=== PATIENT | female | born 1985 | race Asian ===

== ENCOUNTER 2017-01-22 09:21 | Emergency (ER) | payer OTHER ==
[~2017-01-22] VITALS: Ht 160 cm; Wt 54.4 kg
[2017-01-22 10:03] VITALS: BP 135/76
[2017-01-22] MEDS ORDERED: IBUPROFEN 600 MG TABLET. PO ONE (10:45)
--- NOTE | 2017-01-22 11:07 | RAD ---
Indication chronic ankle pain. AP oblique and lateral views of the left ankle were obtained. No bony abnormality is seen
--- NOTE | 2017-01-22 11:14 | PHYS DOC ---
Past Medical History Past Medical History: No Pertinent History Past Surgical History: No Surgical History Alcohol Use: None Drug Use: None Adult General Chief Complaint Chief Complaint: LOWEREXTREMITY INJURY HPI HPI Patient is a 31 year old female who presents with left ankle pain. Patient reports she sprained her left ankle 7 years ago in [facility]. States she has had chronic pain since that time, significantly worse over the past week due to lots of walking at work. Denies any new falls or injury. Denies any other pain. Has not tried taking medication at home. Has not been seen by a physician any time in recent years for this ongoing pain. History obtained with assistance of [facility] language line shank turner. Review of Systems Review of Systems Constitutional: Denies fever or chills HENT: Denies nasal congestion or sore throat Respiratory: Denies cough or shortness of breath Cardiovascular: Denies chest pain GI: Denies abdominal pain, nausea, vomiting Musculoskeletal: Reports left ankle pain Integument: Denies rash Neurologic: Denies headache Current Medications Current Medications Current Medications Medications (Trade) Dose Ordered Sig/Olga Lidia Start Time Stop Time Status Last Admin Dose Admin Ibuprofen (Motrin) 600 mg 1X ONCE 01/22/17 10:45 01/22/17 10:46 DC 01/22/17 10:48 600 MG Allergies Allergies Allergies Coded Allergies Type Severity Reaction Last Updated Verified No Known Drug Allergies 01/22/17 No Physical Exam Physical Exam Constitutional: Well developed, well nourished, no acute distress, non-toxic appearance. HENT: Normocephalic, atraumatic, bilateral external ears normal, oropharynx moist, nose normal. Eyes: conjunctiva normal, no discharge. Cardiovascular: no edema. Lungs & Thorax: no respiratory distress. Abdomen: nondistended. Skin: Warm, dry, Extremities: Left ankle no swelling or deformity, lateral malleolus tenderness is present without deformity, no medial malleolar tenderness, no tenderness with palpation over proximal fifth metatarsal. No proximal tib/fib tenderness, no knee tenderness, DP and PT 2+, sensation intact over the foot. Neurologic: Alert and oriented X 3 Current Patient Data Vital Signs Vital Signs Date Time Temp Pulse Resp B/P Pulse Ox O2 Delivery O2 Flow Rate FiO2 01/22/17 10:03 97.7 86 18 100 Room Air 97.7 EKG EKG [] Radiology/Procedures Radiology/Procedures PROCEDURE: ANKLE LEFT 3V Indication chronic ankle pain. AP oblique and lateral views of the left ankle were obtained. No bony abnormality is seen DICTATED and SIGNED BY: JOSE MELGAR MD DATE: 01/22/171102[] Course & Med Decision Making Course & Med Decision Making Pertinent Labs and Imaging studies reviewed. (See chart for details) Patient presents with acute on chronic ankle pain. X-ray unremarkable as above. Recommend rest, provided riky wrap, tylenol/ibuprofen for pain, follow up as needed with Dr. Claire in primary care clinic, may need PT. Gave work note for light duty. Patient discharged home in stable condition. [] Dragon Disclaimer Dragon Disclaimer This electronic medical record was generated, in whole or in part, using a voice recognition dictation system. Departure Departure Impression: Primary Impression: Ankle pain Disposition: 01 HOME, SELF-CARE Condition: STABLE Referrals: NO PCP (PCP) YONATAN CLAIRE MD Patient Instructions: Ankle Pain Additional Instructions: You were seen in the emergency department today for ankle pain. X-ray was normal. Please rest, ice, take ibuprofen as needed. Follow-up with Dr. Claire in the primary care clinic or choose another doctor if you prefer. EMMANUEL THOMAS MD Jan 22, 2017 11:14
== END 2017-01-22 11:45 | disposition home or self-care (01) ==
LOC: ER 09:21
DX: M25.572 Pain in left ankle and joints of left foot (principal); G89.29 Other chronic pain
CPT/HCPCS: 73610; 99284

== ENCOUNTER 2017-01-31 10:02 | Emergency (ER) | payer OTHER ==
[~2017-01-31] VITALS: Ht 162.6 cm; Wt 54.4 kg
[2017-01-31 10:23] VITALS: BP 106/67
[2017-01-31] MEDS ORDERED: TRAM-29 PO (10:45)
[2017-01-31] MEDS ORDERED: PENI500T PO (10:45)
--- NOTE | 2017-01-31 10:45 | PHYS DOC ---
Past Medical History Past Medical History: No Pertinent History Past Surgical History: No Surgical History Additional Information: Nonsmoker Alcohol Use: None Drug Use: None Adult General Chief Complaint Chief Complaint: TOOTH ACHE OR PAIN HPI HPI Patient is a 31 year old female who presents with right maxillary dental pain for 3 days. She denies any fever. She does not have a PCP. The patient speaks Greek. A family member translates. Review of Systems Review of Systems Constitutional: Denies fever or chills. [] Eyes: Denies change in visual acuity, redness, or eye pain. [] HENT: Denies ear pain, nasal congestion or sore throat. Reports dental pain. Integument: Denies rash or skin lesions. [] Allergies Allergies Allergies Coded Allergies Type Severity Reaction Last Updated Verified No Known Drug Allergies 01/22/17 No Physical Exam Physical Exam Constitutional: Well developed, well nourished, no acute distress, non-toxic appearance. [] HENT: Normocephalic, atraumatic, bilateral external ears normal, oropharynx moist, no oral exudates, nose normal. Bilateral TMs without erythema or bulging. There is no posterior pharyngeal erythema or tonsillar edema. Tooth #1 is broken. There are widespread dental caries. There is no gingival edema or dental abscess. Eyes: PERRLA, EOMI, conjunctiva normal, no discharge. [] Neck: Normal range of motion, no tenderness, supple, no stridor. [] Skin: Warm, dry, no erythema, no rash. [] Neurologic: Alert and oriented X 3, normal motor function, normal sensory function, no focal deficits noted. [] Psychologic: Affect normal, judgement normal, mood normal. [] Current Patient Data Vital Signs Vital Signs Date Time Temp Pulse Resp B/P Pulse Ox O2 Delivery O2 Flow Rate FiO2 01/31/17 10:23 98.1 102 20 98 Room Air 98.1 EKG EKG [] Radiology/Procedures Radiology/Procedures [] Course & Med Decision Making Course & Med Decision Making Pertinent Labs and Imaging studies reviewed. (See chart for details) [] Dragon Disclaimer Dragon Disclaimer This electronic medical record was generated, in whole or in part, using a voice recognition dictation system. Departure Departure Impression: Primary Impression: Dentalgia Disposition: 01 HOME, SELF-CARE Condition: STABLE Referrals: NO PCP (PCP) Patient Instructions: Dental Pain, [id number] Additional Instructions: Please complete all the prescribed antibiotics, even if your tooth is feeling better. Please take the prescribed pain medication as directed. Do not drive or operate heavy machinery while taking pain medication. Please follow-up with the dentist of your choice as soon as possible. Return to the emergency department if you have any new or concerning symptoms. Scripts Penicillin V Potassium 500 Mg Tablet1 Tab PO TID #30 TAB Prov:MIKI CONTRERAS 01/31/17 Tramadol Hcl (Ultram)50 Mg [id number] Mg PO Q6H PRN PAIN #20 TAB Prov:MIKI CONTRERAS 01/31/17 MIKI CONTRERAS Jan 31, 2017 10:45
== END 2017-01-31 11:05 | disposition home or self-care (01) ==
LOC: ER 10:02
DX: K08.89 Other specified disorders of teeth and supporting structures (principal)
CPT/HCPCS: 99283

== ENCOUNTER 2017-04-20 07:54 | Emergency (ER) | payer OTHER ==
[~2017-04-20] VITALS: Ht 154.9 cm; Wt 54.4 kg
[~2017-04-20 07:54] MED LIST: PENI500T PO; TRAM-48 PO
[2017-04-20 08:06] VITALS: BP 114/69
[2017-04-20] MEDS ORDERED: IBUP-1007 PO (08:15)
[2017-04-20] MEDS ORDERED: IBUPROFEN 600 MG TABLET. PO ONE (08:15)
--- NOTE | 2017-04-20 08:15 | PHYS DOC ---
Past Medical History Past Medical History: No Pertinent History Past Surgical History: No Surgical History Alcohol Use: None Drug Use: None Adult General Chief Complaint Chief Complaint: HAND PROBLEM HPI HPI Patient is a 31 year old female that presents to the emergency department with complaints of right hand discomfort for 15 days. Patient states that at night when she sleeps she has the sensation of her hand going to sleep namely the 1 through 3 fingers. Patient states that she has had no known trauma. She does have a job where she performs repetitive wrist motions. Patient is a non- Thai speaking patient, was offered a interpretation line, but declined. Her friend will be interpreting for her per her request. Review of Systems Review of Systems Constitutional: Denies fever or chills [] Musculoskeletal: rigth wrist pain Integument: Denies rash or skin lesions [] Allergies Allergies Allergies Coded Allergies Type Severity Reaction Last Updated Verified No Known Drug Allergies 01/22/17 No Physical Exam Physical Exam Constitutional: Well developed, well nourished, no acute distress, non-toxic appearance. [] Neck: Normal range of motion, no tenderness, supple, no stridor. [] Cardiovascular:Heart rate regular rhythm, no murmur [] Lungs & Thorax: Bilateral breath sounds clear to auscultation [] Skin: Warm, dry, no erythema, no rash. [] Extremities: Right wrist exam, no swelling, no erythema. Allows for full range of motion but does have pain with Phalen and Tinel tests. Neurovascular intact distally. Remainder of right upper extremity exam unremarkable Neurologic: Alert and oriented X 3, normal motor function, normal sensory function, no focal deficits noted. [] Current Patient Data Vital Signs Vital Signs Date Time Temp Pulse Resp B/P (MAP) Pulse Ox O2 Delivery O2 Flow Rate FiO2 04/20/17 08:06 98.1 82 20 100 Room Air 98.1 EKG EKG [] Radiology/Procedures Radiology/Procedures [] Course & Med Decision Making Course & Med Decision Making Right wrist, Velcro splint, placed by nursing staff. Neurovascular intact distally after placement. Patient tolerated well. Pertinent Labs and Imaging studies reviewed. (See chart for details) [] Dragon Disclaimer Dragon Disclaimer This electronic medical record was generated, in whole or in part, using a voice recognition dictation system. Departure Departure Impression: Primary Impression: Carpal tunnel syndrome Disposition: HOME, SELF-CARE Condition: STABLE Referrals: NO PCP (PCP) Patient Instructions: Carpal Tunnel Syndrome, [id number] Scripts Ibuprofen (IBUPROFEN) 600 Mg Tablet 600 MG PO PRN Q8HRS Y for PAIN, #20 TAB Prov: PAUL CARTER APRN 04/20/17 PAUL CARTER APRN Apr 20, 2017 08:15
== END 2017-04-20 08:19 | disposition home or self-care (01) ==
LOC: ER 07:54
DX: G56.01 Carpal tunnel syndrome, right upper limb (principal)
CPT/HCPCS: 29125; 99283-25

== ENCOUNTER 2017-04-25 15:30 | Emergency (ER) | payer OTHER ==
[~2017-04-25 15:30] MED LIST changes: +IBUP-1007 PO
[2017-04-25 15:41] VITALS: BP 115/76
--- NOTE | 2017-04-25 16:24 | PHYS DOC ---
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 Patient denies any known injury. 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 Patient states her pain is worse with flexion and extension. Denies any scaphoid pain or tenderness. Patient denies any known injury. Off note she was seen in the ED April 20, 2017 for the same complaint. Review of Systems Review of Systems Constitutional: Denies fever or chills [] Eyes: Denies change in visual acuity, redness, or eye pain [] Musculoskeletal: Right wrist pain Integument: Denies rash or skin lesions [] Neurologic: Denies headache, focal weakness or sensory changes [] Endocrine: Denies polyuria or polydipsia [] Allergies Allergies Allergies Coded Allergies Type Severity Reaction Last Updated Verified No Known Drug Allergies 01/22/17 No Physical Exam Physical Exam Constitutional: Well developed, well nourished, no acute distress, non-toxic appearance. [] Skin: Warm, dry, no erythema, no rash. [] Back: No tenderness, no CVA tenderness. [] Extremities: Right wrist with no obvious edema and obvious ecchymosis no obvious edema deformity. No scaphoid tenderness on the right wrist. Diffuse tenderness on the dorsal aspect of the wrist. Full range of motion to the right wrist. Positive Tinel and Phalen sign. +2 right radial pulses. Cap refill less than 2 seconds the right fingers. Adequate radial medial sensation to the right hand. Neurologic: Alert and oriented X 3, normal motor function, normal sensory function, no focal deficits noted. [] Psychologic: Affect normal, judgement normal, mood normal. [] Current Patient Data Vital Signs Vital Signs Date Time Temp Pulse Resp B/P (MAP) Pulse Ox O2 Delivery O2 Flow Rate FiO2 04/25/17 15:41 98.2 110 18 98 Room Air 98.2 EKG EKG [] Radiology/Procedures Radiology/Procedures []PROCEDURE: WRIST 3V RIGHT Right wrist, 3 views, 04/25/2017: History: Wrist pain No fracture or dislocation is identified. No significant arthritic change is seen. The soft tissues are unremarkable. IMPRESSION: No significant abnormality is detected. DICTATED and SIGNED BY: PORFIRIO VELEZ MD DATE: 04/25/17 4225 CC: OSMAR PRATER APRN; NO PCP ~ Course & Med Decision Making Course & Med Decision Making Pertinent Labs and Imaging studies reviewed. (See chart for details) Patient is in the ED with wrist pain for 2 weeks. She was seen in the ED in 13/05 with the same complaint and was diagnosed with carpal tunnel. She was given a brace. She states the bases at home. She wears it during work. She does a job where she does repetitive wrist movements. Right wrist x-rays interpreted by radiologist are negative for any acute findings. I used the spray booth operator line for [place] and spoke to patient. Informed patient her x-rays are negative and she has a condition called carpal tunnel. Talked to patient about managing this condition. Recommended following up with the primary care doctor as well as orthopedic doctor which we provided. She was given a Velcro splint applied to the right wrist by the ED RN, neurovascular exam done by me post splint application is normal, cap refill less than 2 seconds. Ice elevation encouraged. Discharged with gabapentin, cyclobenzaprine and diclofenac. Dragon Disclaimer Dragon Disclaimer This electronic medical record was generated, in whole or in part, using a voice recognition dictation system. Departure Departure Impression: Primary Impression: Carpal tunnel syndrome of right wrist Disposition: HOME, SELF-CARE Condition: STABLE Referrals: NO PCP (PCP) WINSTON DE LA TORRE MD Follow-up with the provided orthopedic doctor in one week Patient Instructions: Carpal Tunnel Syndrome, [id number] Additional Instructions: You were seen for carpal tunnel syndrome. Wear the brace provided as tolerated. Ice and elevate the extremity. Follow-up with the provided orthopedic doctor as well as a primary care doctor in one week. Scripts Cyclobenzaprine Hcl (CYCLOBENZAPRINE HCL) 10 Mg Tablet 1 TAB PO TID, #90 TAB 1 Refill Prov: OSMAR PRATER APRN 04/25/17 Gabapentin (GABAPENTIN) 300 Mg Capsule 300 MG PO TID, #30 CAP 2 Refills Prov: OSMAR PRATER APRN 04/25/17 Diclofenac Sodium (DICLOFENAC SODIUM) 50 Mg Tablet.dr 1 TAB PO BID, #60 TAB 3 Refills Prov: OSMAR PRATER APRN 04/25/17 OSMAR PRATER APRN Apr 25, 2017 16:24
--- NOTE | 2017-04-25 16:50 | RAD ---
Right wrist, 3 views, 04/25/2017: History: Wrist pain No fracture or dislocation is identified. No significant arthritic change is seen. The soft tissues are unremarkable. IMPRESSION: No significant abnormality is detected.
[2017-04-25] MEDS ORDERED: CYCL10TA2 PO (17:03)
[2017-04-25] MEDS ORDERED: DICL50TA4 PO (17:03)
[2017-04-25] MEDS ORDERED: GABA-586 PO (17:03)
== END 2017-04-25 17:28 | disposition home or self-care (01) ==
LOC: ER 15:30
DX: G56.01 Carpal tunnel syndrome, right upper limb (principal)
CPT/HCPCS: 29125; 73110; 99284-25